=== PATIENT | male | born 1980 | race Caucasian/White ===

== ENCOUNTER 2019-12-31 03:24 | Emergency (ER) | payer SELFPAY ==
[2019-12-31 03:30] VITALS: BP 134/71; PULSE 94; RESP 18; TEMP 36.9; O2SAT 93; BMI 28.8
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
[2019-12-31] MEDS: lidocaine 1% INJ 20 mL SUBCUT (03:40)
--- NOTE | 2019-12-31 05:56 | PC.NURSE ---
vo from , return [place], 1000mg tylenol to administer for pain/anxiety
--- NOTE | 2019-12-31 06:33 | PC.NURSE ---
pt combative, not following directions, argumentative, requiring multiple attempts to redirect for suture repair
== END 2019-12-31 06:30 | disposition home or self-care (01) ==
PROVIDERS: Emergency Provider Emergency Medicine
DX: S09.22XA Traumatic rupture of left ear drum, initial encounter (principal); S01.312A Laceration without foreign body of left ear, initial encounter; Y08.89XA Assault by other specified means, initial encounter; I10 Essential (primary) hypertension
CPT/HCPCS: 12013; 12345; 70450; 70486; 99281; 99283

== ENCOUNTER 2020-04-30 13:25 | Emergency (ER) | payer SELFPAY ==
[2020-04-30 13:37] VITALS: BP 147/69; PULSE 93; RESP 20; TEMP 36.7; O2SAT 97; BMI 28.8
--- NOTE | 2020-04-30 13:51 | ECG_ITS ---
[facility] Test Date: 2020-04-30 Pat Name: Rick Gracia Department: Room: Gender: Male [employer] Intern[employer]: ELIAN : 1980 Requested By: Mor Reese I Order Number: [id number] Reading MD: INDIA SCHROEDER Measurements Intervals [place] Rate: 91 P: 22 WV: 135 QRS: 15 QRSD: 89 T: 61 QT: 345 QTc: 426 Interpretive Statements SINUS RHYTHM NONSPECIFIC T-WAVE ABNORMALITY No previous ECG available for comparison Electronically Signed On 04-30-2020 21:16:27 EXECUTIVE DIRECTOR OF MARKETING by INDIA SCHROEDER [id number]
--- NOTE | 2020-04-30 13:51 | W.ED.CHESTPA ---
HPI - Chest Pain General: Chief Complaint: Chest Pain Stated Complaint: Chest Pain Time Seen by Provider: 04/30/20 13:42 History of Present Illness: MD complaint: chest pain Onset (ago): minute(s) (30) Timing of current episode: episodic (3 episodes so far. Currently CP free) Prior episodes: No Onset: during rest Pain location: left chest Pain radiation: none Severity: moderate Quality: sharp Relieving factors: rest Exacerbating factors: nothing Associated symptoms: Reports dyspnea and nausea; Deny abdominal pain, diaphoresis, fever(s), leg edema, palpitations, sense of impending doom, syncope or vomiting Treatment prior to arrival: none Review of Systems General: Reports: 10 or more systems reviewed and unremarkable except in HPI and below Const: Denies: fever(s) or diaphoresis Eyes: Denies: change in vision or blurry vision ENMT: Denies: throat pain, enlarged tonsils, odynophagia, hoarseness, mouth pain or swelling of lips/tongue Card: Denies: palpitations or syncope Resp: Reports: dyspnea GI: Reports: nausea; Denies: abdominal pain or vomiting : Denies: flank pain, dysuria, urinary frequency, urinary urgency or urinary hesitancy Musc: Denies: neck pain, back pain or extremity swelling Skin/Breast: Denies: rash, pruritus or erythema Neuro: Denies: headache(s), numbness in extremities or weakness in extremities Endo: Denies: polyuria, polydipsia or tired all the time PFS ED PFSH: Medical History (Updated 04/30/20 @ 16:52 by Mor Reese MD, [facility]) Hypertension Hypothyroidism Physical Exam Const: COMMON NORMALS: no acute distress, average body habitus, patient oriented x3, no limitations, healthy appearing, alert and well nourished Neck/C-Spine: COMMON NORMALS: no meningeal signs and no JVD Chest: COMMONS NORMALS: normal inspection of the chest and normal palpation of entire chest wall Resp: COMMON NORMALS: normal respiratory effort, No retractions, No use of accessory muscles, clear to auscultation bilaterally and percussion normal AUSCULTATION: clear to auscultation bilaterally PERCUSSION: percussion normal Cardio: COMMON NORMALS: no JVD, regular rate, regular rhythm, S1 normal heart sound present, S2 normal heart sound present, No gallops present (Cardio), No clicks present (Cardio), No murmurs present (Cardio), No rub (Cardio) and Peripheral pulses 2+ throughout RATE: regular rate RHYTHM: regular rhythm HEART SOUNDS: S1 normal heart sound present and S2 normal heart sound present PERIPHERAL PULSES: Peripheral pulses 2+ throughout GI: COMMON NORMALS: Normal to inspection, nondistended, normoactive bowel sounds present, Soft to palpation, non-tender, No hepatosplenomegaly present, no masses and no bruits PALPATION: Yes Soft to palpation and Yes No hepatosplenomegaly present Extremity: COMMON NORMALS: normal to inspection, full ROM, capillary refill normal, no calf tenderness and no pedal edema Neuro: COMMON NORMALS: patient oriented x3 SENSORIUM/ORIENTATION: Yes alert MENINGEAL SIGNS: Yes no meningeal signs Skin: COMMON NORMALS: no rashes or lesions noted, no wounds, turgor normal, no jaundice, no petechiae and no mottling GENERAL SKIN EXAM: no rashes or lesions noted and turgor normal Course Reevaluation(s): Reevaluation #1: Discussed his lab and imaging findings with him. Negative high-sensitivity troponin x2. Imaging unremarkable. I explained that his lipase is elevated so he has mild pancreatitis, he did not admitted to drinking quite a bit last night which is likely the cause of his pain and pancreatitis. Since it is mild and he is pain-free now we will discharge him home with no pain medications. He is advised that if his pain worsens he needs to come back especially if he is unable to keep anything down. He is to avoid alcohol and consume a soft or liquid diet for the next few days. He voiced understanding and is in agreement with the plan. Time: 16:51 Vital Signs: Vital signs: Vital Signs Temperature 98.0 F 04/30/20 13:37 Pulse Rate 94 04/30/20 16:42 Respiratory Rate 19 H 04/30/20 16:42 Blood Pressure 138/81 04/30/20 16:42 Pulse Oximetry 96 04/30/20 16:42 MDM - Chest Pain MDM Narrative: Medical decision making narrative: 39-year-old male who presents to the emergency department with chest pain. On evaluation he has acute alcoholic pancreatitis. Negative high-sensitivity troponin x2. Other evaluation is unremarkable. His lipase is only very mildly elevated and a CT scan is not indicated at this time. He is currently pain-free and did not receive any pain medications in the ER. He is discharged home with advised to quit alcohol at least for now and to consume a soft or liquid diet for the next few days. He is to return for any concerns. Medical Records: Attestation: I reviewed the patient's medical records. Lab Data: Attestation: I reviewed the patient's lab results. Labs: Lab Results 04/30/20 04/30/20 04/30/20 Range/Units 14:05 14:05 14:05 WBC 6.2 (4.0-10.0) 10^3/ uL RBC 4.42 (4.1-5.3) 10^6/u L Hgb 14.0 (11.7-16.6) g/dL Hct 41.6 L (42.0-52.0) % MCV 94.1 H (80-94) fL MCH 31.7 (28.0-34.0) pg MCHC 33.7 (30.0-36.0) g/dL RDW 12.4 (12.1-15.1) % Plt Count 218 (130-400) 10^3/c mm MPV 10.0 (7.4-10.4) fL Neut % (Auto) 58.7 % Lymph % (Auto) 24.2 % [place] % (Auto) 8.5 % Eos % (Auto) 6.9 % Baso % (Auto) 1.1 % Neut # (Auto) 3.63 (1.8-7.7) 10^3/u L Lymph # (Auto) 1.5 (0.8-4.8) 10^3/u L [place] # (Auto) 0.5 (0.2-0.9) 10^3/u L Eos # (Auto) 0.4 (0.0-0.8) 10^3/u L Baso # (Auto) 0.1 (0.0-0.1) 10^3/u L Nucleated RBC % (a uto) 0 % Nucleated RBCs # 0.0 /100WBC PT 14.00 (12.1-14.9) SECO NDS INR 1.05 (0.8-1.2) Sodium 143 (136-145) mmol/L Potassium 4.3 (3.5-5.1) mmol/L Chloride 107 (98-107) mmol/L Carbon Dioxide 25 (22-29) mmol/L Anion Gap 15.3 (5-19) BUN 12 (6-20) mg/dL Creatinine 0.9 (0.7-1.2) mg/dL GFR Calculation 93.5 (90-130) mL/min Glucose 90 (65-115) mg/dL Calculated Osmolal ity 295 (285-295) mOsm/k g Calcium 9.6 (8.5-10.5) mg/dL Total Bilirubin 0.3 (0.15-1.2) mg/dL AST 26 (0-40) U/L ALT 23 (0-41) U/L Alkaline Phosphata se 74 (40-130) IU/L Troponin T Baselin e (0-15) ng/L Troponin T 120 Min shahab (0-15) ng/L Delta Troponin T (0-10) ABS# Total Protein 7.2 (6.6-8.7) g/dL Albumin 4.5 (3.5-5.2) g/dL Globulin 2.7 (1.3-4.6) g/dL Lipase 93 H (13-60) U/L 04/30/20 04/30/20 Range/Units 14:05 16:11 WBC (4.0-10.0) 10^3/ uL RBC (4.1-5.3) 10^6/u L Hgb (11.7-16.6) g/dL Hct (42.0-52.0) % MCV (80-94) fL MCH (28.0-34.0) pg MCHC (30.0-36.0) g/dL RDW (12.1-15.1) % Plt Count (130-400) 10^3/c mm MPV (7.4-10.4) fL Neut % (Auto) % Lymph % (Auto) % [place] % (Auto) % Eos % (Auto) % Baso % (Auto) % Neut # (Auto) (1.8-7.7) 10^3/u L Lymph # (Auto) (0.8-4.8) 10^3/u L [place] # (Auto) (0.2-0.9) 10^3/u L Eos # (Auto) (0.0-0.8) 10^3/u L Baso # (Auto) (0.0-0.1) 10^3/u L Nucleated RBC % (a uto) % Nucleated RBCs # /100WBC PT (12.1-14.9) SECO NDS INR (0.8-1.2) Sodium (136-145) mmol/L Potassium (3.5-5.1) mmol/L Chloride (98-107) mmol/L Carbon Dioxide (22-29) mmol/L Anion Gap (5-19) BUN (6-20) mg/dL Creatinine (0.7-1.2) mg/dL GFR Calculation (90-130) mL/min Glucose (65-115) mg/dL Calculated Osmolal ity (285-295) mOsm/k g Calcium (8.5-10.5) mg/dL Total Bilirubin (0.15-1.2) mg/dL AST (0-40) U/L ALT (0-41) U/L Alkaline Phosphata se (40-130) IU/L Troponin T Baselin e 7 (0-15) ng/L Troponin T 120 Min shahab 6.95 (0-15) ng/L Delta Troponin T -0.05 L (0-10) ABS# Total Protein (6.6-8.7) g/dL Albumin (3.5-5.2) g/dL Globulin (1.3-4.6) g/dL Lipase (13-60) U/L Imaging Data^: CXR: Attestation: I personally reviewed and interpreted this imaging study as follows: Radiologist's impression: [address] [address] XRay Report Signed Patient: Marcio Gracia #: [id number] : 1980Acct#:[id number] Age/Sex: 39 / MADM Date: 04/30/20 Loc: ERRoom/Bed: Attending Dr: Ordering Provider/Ordering MD: Mor Reese MD, [facility] Date of Service: 04/30/20 Procedure(s): XR chest 1V portable [id number] Accession Number(s): [id number] Report Number: [id number] PROCEDURE INFORMATION: Exam: XR Chest, 1 View Exam date and time: 04/30/2020 1:52 PM Age: 39 years old Clinical indication: Chest pain; Additional info: Cp TECHNIQUE: Imaging protocol: XR of the chest Views: 1 view. COMPARISON: No relevant prior studies available. FINDINGS: Lungs: Unremarkable. No consolidation. Pleural spaces: Unremarkable. No pleural effusion. No pneumothorax. Heart/Mediastinum: Unremarkable. No cardiomegaly. Bones/joints: Unremarkable. XR/XR chest 1V portable [id number] IMPRESSION: No acute findings. Dictated By:Zeynep Calzada MD Signed By:Zeynep Calzadaigned Date/Time:04/30/20 1450 DD/ 1449 EKG Data^: EKG 1: Attestation: I personally reviewed and interpreted this EKG as follows: EKG interpretation date: 04/30/20 EKG interpretation time: 13:35 Prior EKG tracings: not available for review Interpretation: Normal sinus rhythm. Heart rate 91 bpm. Normal axis. No ST changes. EKG 2: Attestation: I personally reviewed and interpreted this EKG as follows: EKG interpretation date: 04/30/20 EKG interpretation time: 15:58 Prior EKG tracings: available for review Interpretation: Normal sinus rhythm. Heart rate [address] changes. Unremarkable EKG. Discharge Plan Discharge Patient Disposition: Home Clinical Impression: Acute alcoholic pancreatitis Qualifiers: Acute pancreatitis complication: no infection or necrosis Qualified Code(s): K85.20 - Alcohol induced acute pancreatitis without necrosis or infection Condition: Stable Prescriptions: Continued amlodipine 10 mg Tablet 10 mg PO DAILY@0600 RF: 0 levothyroxine 200 mcg Tablet 200 mcg PO DAILY@0600 RF: 0 levothyroxine 25 mcg Tablet 25 mcg PO DAILY@0600 RF: 0 multivitamin Tablet 1 tab PO DAILY@0600 RF: 0 ibuprofen 200 mg Tablet 200 - 400 mg PO Q6H PRN (Reason: Pain) RF: 0 Discharge Orders: Discharge ED (Routine); Ordered 04/30/20 Ordered By: Mor Reese Discharge Diet: Advance as tolerated Discharge Activity: Increase activity as tolerated Patient Instructions: Pancreatitis (ED) Activity Restrictions/Additional Instructions: Return for any new or worsening symptoms. Follow-up with your primary care provider within 3 days. If your pain returns and is worse please return for evaluation as you might need to be hospitalized. Avoid alcohol consumption for now. Drink plenty of water to keep well-hydrated. Take Tylenol as needed for pain. Consume a liquid or soft diet for the next 1 to 2 days and if your pain does not return then you can gradually advance your diet until you get to consume your regular diet. Coding Level of Care Code ED Casket Inspector for Francisca Fwd Exam Comprehensive
[2020-04-30 13:56] VITALS: BP 141/85; PULSE 92; RESP 23; O2SAT 96
[2020-04-30 14:24] LABS: Basophils # 0.1 10^3/uL (0.0-0.1); Basophils % 1.1 %; Eosinophils # 0.4 10^3/uL (0.0-0.8); Eosinophils % 6.9 %; Hematocrit 41.6 % (42.0-52.0); Lymphocytes # 1.5 10^3/uL (0.8-4.8); Lymphocytes % 24.2 %; Mean Corpuscular HGB Conc 33.7 g/dL (30.0-36.0); Mean Corpuscular Hemoglobin 31.7 pg (28.0-34.0); Mean Corpuscular Volume 94.1 fL (80-94); Monocytes # 0.5 10^3/uL (0.2-0.9); Monocytes % 8.5 %; Neutrophils # 3.63 10^3/uL (1.8-7.7); Neutrophils % 58.7 %; Nucleated Red Blood Cells % 0 %; Platelet Count 218 10^3/cmm (130-400); Red Blood Count 4.42 10^6/uL (4.1-5.3); Red Cell Distribution Width 12.4 % (12.1-15.1); White Blood Count 6.2 10^3/uL (4.0-10.0)
[2020-04-30 14:34] VITALS: PULSE 87; RESP 14; O2SAT 94
[2020-04-30 14:42] LABS: INR 1.05 (0.8-1.2)
[2020-04-30] MEDS: albuterol 8 gm MDI 4 PUFF INHALATION (14:43)
[2020-04-30 14:47] VITALS: PULSE 88; RESP 18; O2SAT 96
[2020-04-30 14:52] LABS: Alanine Aminotransferase 23 U/L (0-41); Albumin Level 4.5 g/dL (3.5-5.2); Alkaline Phosphatase 74 IU/L (40-130); Anion Gap 15.3 (5-19); Aspartate Amino Transferase 26 U/L (0-40); Blood Urea Nitrogen 12 mg/dL (6-20); Calcium 9.6 mg/dL (8.5-10.5); Carbon Dioxide 25 mmol/L (22-29); Chloride 107 mmol/L (98-107); Globulin 2.7 g/dL (1.3-4.6); Glomerular Filtration Rate 93.5 mL/min (90-130); Glucose 90 mg/dL (65-115); Lipase 93 U/L (13-60); Osmolality Calculated 295 mOsm/kg (285-295); Potassium 4.3 mmol/L (3.5-5.1); Sodium 143 mmol/L (136-145); Total Bilirubin 0.3 mg/dL (0.15-1.2); Total Protein 7.2 g/dL (6.6-8.7); Troponin(5th) Baseline 7 ng/L (0-15)
[2020-04-30 15:33] VITALS: BP 108/59; PULSE 76; RESP 16; O2SAT 99
[2020-04-30] MEDS: aspirin 81 mg Chew Tablet 324 MG PO (15:33)
--- NOTE | 2020-04-30 15:51 | ECG_ITS ---
[facility] Test Date: 2020-04-30 Pat Name: Rick Gracia Department: Room: Gender: Male Video Surveillance Technician: : 1980 Requested By: Mor Reese I Order Number: [id number] Reading MD: INDIA SCHROEDER Measurements Intervals [place] Rate: 75 P: 19 IA: 145 QRS: 22 QRSD: 102 T: 51 QT: 360 QTc: 405 Interpretive Statements SINUS RHYTHM INCOMPLETE RIGHT BUNDLE BRANCH BLOCK [90+ ms QRS DURATION, TERMINAL R IN V1/V2, 40+ ms S IN I/aVL/V4/V5/V6] NONSPECIFIC T-WAVE ABNORMALITY No previous ECG available for comparison Electronically Signed On 04-30-2020 21:18:44 RN CARE MANAGER by INDIA SCHROEDER [id number]
[2020-04-30 16:42] VITALS: BP 138/81; PULSE 94; RESP 19; O2SAT 96
[2020-04-30 16:44] LABS: Troponin 5 2HR 6.95 ng/L (0-15)
[2020-04-30 16:50] LABS: Troponin 5 2HR Delta -0.05 ABS# (0-10)
== END 2020-04-30 17:01 | disposition home or self-care (01) ==
PROVIDERS: Emergency Provider Family Medicine
DX: K85.20 Alcohol induced acute pancreatitis without necrosis or infection (principal); I10 Essential (primary) hypertension
CPT/HCPCS: 12345; 71045; 80053; 83690; 84484; 85025; 85610; 93005; 94640; 99282; 99283; J3535

== ENCOUNTER 2021-09-30 13:13 | Emergency (ER) | payer SELFPAY ==
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
[2021-09-30 13:29] VITALS: BP 149/97; PULSE 109; RESP 18; TEMP 36.6; O2SAT 98
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
[2021-09-30] MEDS: acetaminophen 500 mg Tablet PO (14:10)
--- NOTE | 2021-10-02 12:52 | DCPLANNER ---
Addendum entered by Lola Ashley 10/15/21 17:33: Patient had a follow up appointment scheduled for 10.02.21 with Adolfo Silverio at ortho - patient did attend appointment. Original Note: product support manager had message to schedule a follow up appointment for patient with ortho. product support manager sent patients information to the front office staff at ortho. Patients information will be printed and reviewed. Clinic will call patient with appointment information.
== END 2021-09-30 14:29 | disposition home or self-care (01) ==
PROVIDERS: Emergency Provider Emergency Medicine
DX: S62.310A Displaced fracture of base of second metacarpal bone, right hand, initial encounter for closed fracture (principal); S62.332A Displaced fracture of neck of third metacarpal bone, right hand, initial encounter for closed fracture; S61.411A Laceration without foreign body of right hand, initial encounter; W22.09XA Striking against other stationary object, initial encounter; I10 Essential (primary) hypertension
CPT/HCPCS: 29125; 73130; 99283

== ENCOUNTER → 2021-10-02 15:30 | Outpatient (BNVA) | payer SELFPAY | PROVIDERS: Visit Provider Physician Assistant | DX: S62.91XA Unspecified fracture of right hand, initial encounter for closed fracture (principal); W22.8XXA Striking against or struck by other objects, initial encounter | CPT/HCPCS: 73130 ==

== ENCOUNTER 2021-10-02 16:06 | Outpatient (CLI) | payer SELFPAY | END 2021-10-02 16:07 | disposition home or self-care (01) | LOC: SPT 16:09 | PROVIDERS: Visit Provider Physician Assistant | DX: Z46.89 Encounter for fitting and adjustment of other specified devices (principal); S62.91XD Unspecified fracture of right hand, subsequent encounter for fracture with routine healing; S62.390D Other fracture of second metacarpal bone, right hand, subsequent encounter for fracture with routine healing; S62.392D Other fracture of third metacarpal bone, right hand, subsequent encounter for fracture with routine healing; X58.XXXD Exposure to other specified factors, subsequent encounter | CPT/HCPCS: 97760; L3984 ==

== ENCOUNTER → 2021-11-13 08:15 | Outpatient (BNVA) | payer SELFPAY | PROVIDERS: Visit Provider Physician Assistant | DX: M79.641 Pain in right hand (principal) | CPT/HCPCS: 73130 ==

== ENCOUNTER → 2022-03-06 12:56 | Outpatient (BNVA) | payer SELFPAY | PROVIDERS: Visit Provider Registered Nurse Neonatal Intensive Care | DX: R50.9 Fever, unspecified (principal); H66.92 Otitis media, unspecified, left ear | CPT/HCPCS: 87400 ==